=== PATIENT | female | born 1935 | race Caucasian/White ===

== ENCOUNTER 2017-01-19 22:24 | Emergency (ER) | payer MEDICARE, OTHER ==
--- NOTE | 2017-01-19 23:00 | ER Document Report ---
ED General - General Chief Complaint: Altered Mental Status Stated Complaint: ALTERED MENTAL STATUS Time Seen by Provider: 01/19/17 22:49 Information source: Relative, Emergency Med Personnel Cannot obtain history due to: Dementia Notes: Patient is an 81-year-old female with past medical history of vascular dementia who presents by EMS for not acting at her baseline per family members. No additional history can be obtained at time of arrival as patient is nonverbal and this is apparently her baseline. Only reported history is that apparently when patient was being assisted to the bathroom today she had loss of bladder, and seemed to be more confused than normal so EMS was contacted. TRAVEL OUTSIDE OF THE [place] IN LAST 30 DAYS: No - Related Data Allergies/Adverse Reactions: Sulfa (Sulfonamide Antibiotics) Allergy (Verified 09/16/10 11:49) Past Medical History - General Information source: Emergency Med Personnel Cannot obtain history due to: Dementia - Social History Smoking Status: Unknown if Ever Smoked Lives with: Family Family History: Reviewed & Not Pertinent - Past Medical History Cardiac Medical History: Reports: Hx Atrial Fibrillation - valve, Hx Heart Attack, Hx Hypertension Pulmonary Medical History: Reports: Hx Asthma Denies: Hx Tuberculosis Neurological Medical History: Reports: Hx Cerebrovascular Accident. Denies: Hx Seizures GI Medical History: Reports: Hx Hepatitis, Hx Hiatal Hernia, Hx Ulcer Psychiatric Medical History: Denies: Hx Depression Infectious Medical History: Reports: Hx Hepatitis Past Surgical History: Reports: Hx Breast Surgery, Hx Hysterectomy, Hx Open Heart Surgery, Hx Pacemaker - Immunizations Immunizations up to date: Yes Hx Diphtheria, Pertussis, Tetanus Vaccination: Yes Hx Pneumococcal Vaccination: 07/04/10 Review of Systems - Review of Systems -: Yes ROS unobtainable due to patient's medical condition Physical Exam - Vital signs Vitals: Pulse Ox 97 01/19/17 22:32 Interpretation: Normal Notes: PHYSICAL EXAMINATION: GENERAL: No acute distress, smiles during attempts at conversation HEAD: Atraumatic, normocephalic. EYES: Pupils equal round and reactive to light, extraocular movements intact, sclera anicteric, conjunctiva are normal. ENT: nares patent, oropharynx clear without exudates. Moist mucous membranes. NECK: Normal range of motion, supple without lymphadenopathy LUNGS: Breath sounds clear to auscultation bilaterally and equal. No wheezes rales or rhonchi. HEART: Irregularly irregular rhythm without murmurs ABDOMEN: Soft, nontender, normoactive bowel sounds. No guarding, no rebound. No masses appreciated. EXTREMITIES: Normal range of motion, no pitting or edema. No cyanosis. NEUROLOGICAL: No focal neurological deficits. Moves all extremities spontaneously. PSYCH: Nonverbal SKIN: Warm, Dry, normal turgor, 3 stage II decubitus ulcers are noted on the sacrum Course - Re-evaluation Re-evalutation: 01/19/17 22:59 Patient presents with apparently worse altered mental status and baseline. She is nonverbal only history is as provided by EMS who states that the daughter was concerned the patient is more altered than her baseline as she was unable to get off the toilet. Patient is very cold to the touch but vitals otherwise within normal limits. She smiles pleasantly at attempts with conversation but does not provide any history which is apparently baseline. She has no apparent facial droop. She does move all extremities spontaneously. Will proceed with a core temperature, laboratories, head CT, chest x-ray, urinalysis and reassess 01/20/17 00:29 Patient's urinalysis does demonstrate findings consistent with a urinary tract infection. The patient's daughter is now at the bedside, provides excellent history similar to what EMS reports that the patient is been weaker over the last 24-48 hours, and seemed to be acting differently today. Daughter clarifies that there was no episode of syncope or neurologic deficit earlier today. The remainder patient's laboratories, CT the head, chest x-ray are all unremarkable. Daughter is agreeable to managing the patient as an outpatient on oral cephalexin. A urine culture has been sent. At this time will discharge with return precautions and follow-up recommendations. Verbal discharge instructions given a the bedside and opportunity for questions given. Medication warnings reviewed. Daughter is in agreement with this plan and has verbalized understanding of return precautions and the need for primary care follow-up in the next 24-72 hours. - Vital Signs Vital signs: Temp Pulse Resp BP Pulse Ox 99 17 108/94 H 99 01/19/17 22:37 01/20/17 01:14 01/20/17 01:14 01/20/17 01:14 - Laboratory Result Diagrams: 01/19/17 23:10 01/19/17 23:10 Laboratory results interpreted by me: 01/19/17 01/19/17 01/19/17 23:10 23:10 23:25 MCV 100 H RDW 14.6 H Lymphocytes % 11.8 L BUN 30 H Glucose 157 H Urine Protein 100 H Urine Ketones TRACE H Urine Urobilinogen 4.0 H Ur Leukocyte Esterase SMALL H Urine Ascorbic Acid 40 H - Diagnostic Test Radiology reviewed: Image reviewed, Reports reviewed Radiology results interpreted by me: 01/20/17 01:57 CT head: No acute intracranial bleed CXR: No acute infiltrate - EKG Interpretation by Me Additional EKG results interpreted by me: 01/20/17 01:[address] elevations or depressions. 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 Prolonged QTC at 590 Discharge - Discharge Clinical Impression: Altered mental status Qualifiers: Altered mental status type: unspecified Qualified Code(s): R41.82 - Altered mental status, unspecified Urinary tract infection Qualifiers: Urinary tract infection type: site unspecified Hematuria presence: without hematuria Qualified Code(s): N39.0 - Urinary tract infection, site not specified Condition: Stable Disposition: HOME, SELF-CARE Additional Instructions: Your urine shows findings consistent with a urinary tract infection. Please take all the antibiotics as directed even if your symptoms have improved. Please follow-up with your primary care physician as needed. Return to emergency room if you develop fever >101F, persistent vomiting, become lethargic , have severe pain in your sides, or any other symptoms that are concerning to you. Prescriptions: Cephalexin Monohydrate [Keflex 500 mg Capsule] 500 mg PO QID #20 capsule Referrals: PINO DUFFY MD [Primary Care Provider] - Follow up as needed
[2017-01-19 23:27] LABS: ABSOLUTE LYMPHOCYTES (AUTO) 1.2 10^3/uL (0.5-4.7); ABSOLUTE MONOCYTES (AUTO) 0.9 10^3/uL (0.1-1.4); ABSOLUTE NEUT (AUTO) 7.7 10^3/uL (1.7-8.2); BASOPHILS % (AUTO) 0.4 % (0-2); EOSINOPHILS % (AUTO) 0.5 % (0-6); HEMATOCRIT 40.2 % (36.0-47.0); HEMOGLOBIN 13.2 g/dL (12.0-15.5); HGB HCT DIFFERENCE -0.6; LYMPHOCYTES % (AUTO) 11.8 % (13-45); MEAN CORPUSCULAR HGB CONC 32.9 g/dL (32.0-36.0); MEAN CORPUSCULAR VOLUME 100 fl (80-97); MONOCYTES % (AUTO) 9.6 % (3-13); RED BLOOD COUNT 4.01 10^6/uL (3.72-5.28); RED CELL DISTRIBUTION WIDTH 14.6 % (11.5-14.0); SEGMENTED NEUTROPHILS % (AUTO) 77.7 % (42-78); WHITE BLOOD COUNT 9.9 10^3/uL (4.0-10.5)
[2017-01-19 23:39] LABS: ANION GAP 11 (5-19); BLOOD UREA NITROGEN 30 mg/dL (7-20); CALCIUM 8.8 mg/dL (8.4-10.2); CARBON DIOXIDE 23 mmol/L (22-30); CHLORIDE 104 mmol/L (98-107); CREATININE RESULT 0.88 mg/dL (0.52-1.25); GLUCOSE 157 mg/dL (75-110); POTASSIUM 4.2 mmol/L (3.6-5.0); SODIUM 138.4 mmol/L (137-145)
--- NOTE | 2017-01-19 23:54 | RADIOLOGY REPORT (SQ) ---
EXAM DESCRIPTION: CT HEAD WITHOUT COMPLETED DATE/TIME: 01/19/2017 11:40 pm REASON FOR STUDY: ams COMPARISON: 09/30/2012 TECHNIQUE: Axial images acquired through the brain without intravenous contrast. Images reviewed wi th bone, brain and subdural windows. Images stored on PACS. All CT scanners at this facility use dose modulation, iterative reconstruction, and/or weight based d osing when appropriate to reduce radiation dose to as low as reasonably achievable (ALARA). [facility]: Dose Right [facility]: CareDose [facility]: Dose Right [facility]: Teradose 4D [facility]: [employer] RADIATION DOSE: Up-to-date CT equipment and radiation dose reduction techniques were employed. CTDIv ol: 55.3 mGy. DLP: 996 mGy-cm.mGy. LIMITATIONS: None. FINDINGS: VENTRICLES: Prominent. CEREBRUM: No masses. No hemorrhage. No midline shift. Areas of low density in the white matter mos t likely due to chronic micro-vascular ischemic change. No evidence for acute infarction. Basal barbi glia calcifications. CEREBELLUM: No masses. No hemorrhage. No alteration of density. No evidence for acute infarction. EXTRAAXIAL SPACES: Age-related involutional change. No fluid collections. No masses. ORBITS AND GLOBE: No intra- or extraconal masses. Normal contour of globe without masses. CALVARIUM: No fracture. PARANASAL SINUSES: No fluid or mucosal thickening. SOFT TISSUES: No mass or hematoma. OTHER: No other significant finding. IMPRESSION: CHRONIC CHANGES OF ATROPHY AND MICROVASCULAR ISCHEMIA. NO ACUTE PROCESS. TECHNICAL DOCUMENTATION: JOB ID: [id number] Quality ID # [id number]: Final reports with documentation of one or more dose reduction techniques (e.g., Au tomated exposure control, adjustment of the mA and/or kV according to patient size, use of iterative reconstruction technique) 2010 [employer]- All Rights Reserved
--- NOTE | 2017-01-19 23:56 | RADIOLOGY REPORT (SQ) ---
EXAM DESCRIPTION: CHEST SINGLE VIEW COMPLETED DATE/TIME: 01/19/2017 11:42 pm REASON FOR STUDY: cough, ams COMPARISON: 01/12/2014 EXAM PARAMETERS: NUMBER OF VIEWS: One view. TECHNIQUE: Single frontal radiographic view of the chest acquired. RADIATION DOSE: NA LIMITATIONS: None. FINDINGS: LUNGS AND PLEURA: Bibasilar atelectasis. No focal infiltrate. No pneumothorax. No signi ficant effusion. MEDIASTINUM AND HILAR STRUCTURES: No masses. Contour normal. HEART AND VASCULAR STRUCTURES: Cardiac size is stable. No vascular distention. BONES: No acute findings. HARDWARE: EKG leads overlie the chest. OTHER: No other significant finding. IMPRESSION: Bibasilar atelectasis. No focal infiltrate. TECHNICAL DOCUMENTATION: JOB ID: [id number]
[2017-01-20 00:03] LABS: APPEARANCE,URINE CLOUDY; BILIRUBIN,URINE NEGATIVE (NEGATIVE); GLUCOSE, URINE NEGATIVE (NEGATIVE); KETONES,URINE TRACE mg/dL (NEGATIVE); LEUKOCYTE ESTERASE,URINE SMALL (NEGATIVE); NITRITE,URINE NEGATIVE (NEGATIVE); PROTEIN,URINE 100 mg/dL (NEGATIVE); URINE SPECIFIC GRAVITY 1.025
[2017-01-20] MEDS ORDERED: CEFTRIAXONE 1 GM/D5W RTU 50 ML IV ONE (00:19)
[2017-01-20 01:37] VITALS: BP 108/94
--- NOTE | 2017-01-21 06:03 | EKG REPORT ---
SEVERITY:- ABNORMAL ECG - SINUS OR ECTOPIC ATRIAL RHYTHM FIRST DEGREE AV BLOCK RBBB AND LPFB : Confirmed by: Marlene Sanchez MD 21-Jan-2017 06:03:20
== END 2017-01-20 01:37 | disposition home or self-care (01) ==
LOC: ER 22:24
DX: R41.82 Altered mental status, unspecified (principal); N39.0 Urinary tract infection, site not specified; F01.50 Vascular dementia, unspecified severity, without behavioral disturbance, psychotic disturbance, mood disturbance, and anxiety; Z88.2 Allergy status to sulfonamides; I48.91 Unspecified atrial fibrillation; I25.2 Old myocardial infarction; I10 Essential (primary) hypertension; Z86.73 Personal history of transient ischemic attack (TIA), and cerebral infarction without residual deficits; Z90.710 Acquired absence of both cervix and uterus
CPT/HCPCS: 93005; 99285; 96365; 36415; 87086; 85025; 87088; 80048; 81001; 84484; 87186; 71010; 70450; 93010; J0696

== ENCOUNTER 2017-01-20 21:39 | Inpatient (IN) | payer MEDICARE, OTHER ==
[2017-01-20] MEDS ORDERED: CEFEPIME 2 GM/D5W RTU 50 ML IV ONE (21:46)
[2017-01-20] MEDS ORDERED: NORMAL SALINE 1000 ML 1,000 ML IV ONE ×2 (21:46→22:52)
--- NOTE | 2017-01-20 22:04 | ER Document Report ---
ED General - General Chief Complaint: Low Blood Pressure Stated Complaint: POSSIBLE SYNCOPE Time Seen by Provider: 01/20/17 21:46 Information source: Emergency Med Personnel Cannot obtain history due to: Dementia Notes: Patient is an 81-year-old female whom I saw yesterday for a period of altered mental status, found to have pyelonephritis on urinalysis and discharged home on cephalexin who presents today after an episode of syncope while on the commode. Again history is severely limited secondary to patient's severe dementia with nonverbal status. Daughter reports that she has been providing Keflex as prescribed. EMS reports initial core temperature for the patient was 96F. She was initially noted to have a non-obtainable blood pressure while sitting on the toilet when EMS got her onto the stretcher and laid her flat her blood pressure did normalize and patient became closer to her baseline mental status. She was then transported to the emergency department. TRAVEL OUTSIDE OF THE [place] IN LAST 30 DAYS: No - Related Data Allergies/Adverse Reactions: Sulfa (Sulfonamide Antibiotics) Allergy (Verified 09/16/10 11:49) Home Medications: Current Home Medications Amiodarone HCl [Cordarone 200 mg Tablet] 200 mg PO DAILY 01/20/17 [History] Donepezil HCl 10 mg PO HSP PRN 01/20/17 [History] Memantine HCl [Namenda Xr] 28 mg PO DAILY 01/20/17 [History] Potassium Chloride 20 meq PO BID 01/20/17 [History] Past Medical History - General Information source: Emergency Med Personnel Cannot obtain history due to: Dementia - Social History Smoking Status: Unknown if Ever Smoked Lives with: Family Family History: Reviewed & Not Pertinent - Past Medical History Cardiac Medical History: Reports: Hx Atrial Fibrillation - valve, Hx Heart Attack, Hx Hypertension Pulmonary Medical History: Reports: Hx Asthma Denies: Hx Tuberculosis Neurological Medical History: Reports: Hx Cerebrovascular Accident. Denies: Hx Seizures GI Medical History: Reports: Hx Hepatitis, Hx Hiatal Hernia, Hx Ulcer Psychiatric Medical History: Denies: Hx Depression Infectious Medical History: Reports: Hx Hepatitis Past Surgical History: Reports: Hx Breast Surgery, Hx Hysterectomy, Hx Open Heart Surgery, Hx Pacemaker - Immunizations Immunizations up to date: Yes Hx Diphtheria, Pertussis, Tetanus Vaccination: Yes Hx Pneumococcal Vaccination: 07/04/10 Review of Systems - Review of Systems -: Yes ROS unobtainable due to patient's medical condition Physical Exam - Vital signs Vitals: BP 108/73 01/20/17 15:33 Interpretation: Tachycardic Notes: PHYSICAL EXAMINATION: GENERAL: Elderly woman, lying in bed no acute distress but is ill in appearance relative to yesterday. HEAD: Atraumatic, normocephalic. EYES: Pupils equal round and reactive to light, extraocular movements intact, sclera anicteric, conjunctiva are normal. ENT: nares patent, oropharynx clear without exudates. Moderately dry mucous membranes. NECK: Normal range of motion, supple without lymphadenopathy LUNGS: Breath sounds clear to auscultation bilaterally and equal. No wheezes rales or rhonchi. HEART: regular tachycardia without murmurs ABDOMEN: Soft, nontender, normoactive bowel sounds. No guarding, no rebound. No masses appreciated. EXTREMITIES: no pitting or edema. No cyanosis. NEUROLOGICAL: No focal neurological deficits. Moves all extremities spontaneously PSYCH: Nonverbal SKIN: Warm, Dry, normal turgor, no rashes or lesions noted. Course - Re-evaluation Re-evalutation: 01/20/17 22:02 Patient presents with an episode of what appears to be a vasovagal syncope while trying to have a bowel movement in the setting of sepsis. Inital core temp is 96 with tachycarida (although heart rate has normalized upon arrival) She was just seen by me yesterday at that time for an altered mental status episode and found to have a urinary tract infection, given a dose of IV ceftriaxone and sent home on cephalexin. Physical examination today is unchanged from yesterday, patient's mental status is again at her baseline. Will obtain basic laboratories, provide IV fluids and reassess. Yesterday family had wanted patient to be followed at home for these concerns and will discuss with them again today about ongoing management as an outpatient versus consideration of admission. 01/20/17 22:57 Patient's lactate is noted to be markedly elevated at 5.5. This does meet criteria for severe sepsis. Patient has already received 1 L of IV fluids and is now receiving a second. Cefepime has been administered and will add on vancomycin given his elevated lactate. Again I suspect the source is urinary given urinalysis yesterday demonstrating findings consistent with an acute urinary tract infection. Chest x-ray is again negative today and patient has no evidence of infection on her decubitus ulcers. I discussed this with the patient's primary care doctor Dr. Oliver would like her admitted to the telemetry unit. 01/20/17 23:04 I have updated the patient's daughter at the bedside who is in agreement with admission at this time. Will continue to monitor closely given this elevated lactate and plan for a recheck. Will continue to monitor closely while here in the ED. 01/20/17 23:46 Patient is remained hemodynamically within normal limits, remains at her baseline mental status. Continues to receive IV fluids at this time - Vital Signs Vital signs: Temp Pulse Resp BP Pulse Ox 97 F L 95 16 121/66 96 01/20/17 22:08 01/21/17 02:00 01/21/17 00:54 01/21/17 00:54 01/21/17 00:54 - Laboratory Result Diagrams: 01/20/17 21:55 01/20/17 21:55 Laboratory results interpreted by me: 01/20/17 01/20/17 01/20/17 21:55 21:55 21:55 MCV 102 H RDW 14.8 H Band Neutrophils % 2 L Metamyelocytes % 1 H VBG pH Carbon Dioxide 21 L BUN 33 H Est GFR (Non-Af Amer) 52 L Glucose 171 H Lactic Acid 5.2 H AST 247 H ALT 117 H Alkaline Phosphatase 146 H Albumin 3.3 L 01/20/17 21:55 MCV RDW Band Neutrophils % Metamyelocytes % VBG pH 7.22 L Carbon Dioxide BUN Est GFR (Non-Af Amer) Glucose Lactic Acid AST ALT Alkaline Phosphatase Albumin - Diagnostic Test Radiology reviewed: Image reviewed, Reports reviewed Radiology results interpreted by me: 01/20/17 22:58 Chest x-ray: No acute infiltrate or pneumothorax - EKG Interpretation by Me Additional EKG results interpreted by me: 01/20/17 22:58 A. fib, rate 96. Right bundle branch block and left posterior fascicular block , unchanged from prior. QTc 444. Critical Care Note - Critical Care Note Total time excluding time spent on procedures (mins): 38 Comments: Critical care time spent obtaining history from patient or surrogate, discussions with consultants, development of treatment plan with patient or surrogate, evaluation of patient's response to treatment, examination of patient , ordering and performing treatments and interventions, ordering and review of laboratory studies, re-evaluation of patient's condition, ordering and review of radiographic studies and review of old charts Discharge - Discharge Clinical Impression: Severe sepsis, Pyelonephritis Condition: Fair Disposition: ADMITTED INPATIENT Admitting Provider: Melody Unit Admitted: Telemetry
[2017-01-20 22:11] LABS: VENOUS BLOOD BASE EXCESS -6.3 mmol/L; VENOUS BLOOD HCO3 21.8 mmol/L (20-32); VENOUS BLOOD PCO2 54.1 mmHg (35-63); VENOUS BLOOD PH 7.22 (7.30-7.42)
[2017-01-20 22:14] LABS: HEMATOCRIT 38.3 % (36.0-47.0); HEMOGLOBIN 12.5 g/dL (12.0-15.5); HGB HCT DIFFERENCE -0.8; MEAN CORPUSCULAR HEMOGLOBIN 33.4 pg (27.0-33.4); MEAN CORPUSCULAR HGB CONC 32.7 g/dL (32.0-36.0); MEAN CORPUSCULAR VOLUME 102 fl (80-97); RED BLOOD COUNT 3.75 10^6/uL (3.72-5.28); RED CELL DISTRIBUTION WIDTH 14.8 % (11.5-14.0)
--- NOTE | 2017-01-20 22:25 | RADIOLOGY REPORT (SQ) ---
EXAM DESCRIPTION: CHEST SINGLE VIEW COMPLETED DATE/TIME: 01/20/2017 10:13 pm REASON FOR STUDY: possible sepsis COMPARISON: 01/19/2017 EXAM PARAMETERS: NUMBER OF VIEWS: One view. TECHNIQUE: Single frontal radiographic view of the chest acquired. RADIATION DOSE: NA LIMITATIONS: None. FINDINGS: LUNGS AND PLEURA: Bibasilar atelectasis. No focal infiltrate. MEDIASTINUM AND HILAR STRUCTURES: No masses. Contour normal. HEART AND VASCULAR STRUCTURES: Heart normal in size. Normal vasculature. BONES: No acute findings. HARDWARE: Annular prosthesis noted. EKG leads overlie the chest. OTHER: No other significant finding. IMPRESSION: Bibasilar atelectasis. No focal infiltrates identified. TECHNICAL DOCUMENTATION: JOB ID: [id number]
[2017-01-20 22:26] LABS: ALANINE AMINOTRANSFERASE 117 U/L (9-52); ALBUMIN 3.3 g/dL (3.5-5.0); ALKALINE PHOSPHATASE 146 U/L (38-126); ANION GAP 14 (5-19); ASPARTATE AMINO TRANSFERASE 247 U/L (14-36); BILIRUBIN,DIRECT 0.4 mg/dL (0.0-0.4); BILIRUBIN,TOTAL 0.7 mg/dL (0.2-1.3); BLOOD UREA NITROGEN 33 mg/dL (7-20); CALCIUM 8.7 mg/dL (8.4-10.2); CARBON DIOXIDE 21 mmol/L (22-30); CHLORIDE 105 mmol/L (98-107); CREATININE RESULT 1.03 mg/dL (0.52-1.25); GLUCOSE 171 mg/dL (75-110); POTASSIUM 4.4 mmol/L (3.6-5.0); SODIUM 140.2 mmol/L (137-145); TOTAL PROTEIN 6.5 g/dL (6.3-8.2)
[2017-01-20 22:31] LABS: BAND NEUTROPHILS % (MANUAL) 2 % (3-5); BASOPHILS % (MANUAL) 1 % (0-2); EOSINOPHILS % (MANUAL) 1 % (0-6); LYMPHOCYTES % (MANUAL) 20 % (13-45); TOTAL CELLS COUNTED 100
[2017-01-20 22:32] LABS: ANISOCYTOSIS SLIGHT; TOXIC GRANULATION SLIGHT; TOXIC VACUOLATION PRESENT
[2017-01-20 22:34] LABS: OVALOCYTES SLIGHT; PLATELET CLUMPS PRESENT; POIKILOCYTOSIS SLIGHT
[2017-01-20] MEDS ORDERED: VANCOMYCIN HCL INJ 1000 MG VIAL IV ONE (22:52)
[2017-01-21] MEDS ORDERED: NORMAL SALINE 1000 ML 1,000 ML IV PRN (05:15)
[2017-01-21] MEDS ORDERED: VANCOMYCIN HCL 0 MG in DEXTROSE 5%-WATER 250 ML IV NR (05:30)
[2017-01-21 06:03] LABS: PROTHROMBIN TIME 32.2 SEC (11.4-15.4)
--- NOTE | 2017-01-21 06:03 | EKG REPORT ---
SEVERITY:- ABNORMAL ECG - SINUS OR ECTOPIC ATRIAL RHYTHM FIRST DEGREE AV BLOCK RBBB AND LPFB : Confirmed by: Marlene Sanchez MD 21-Jan-2017 06:03:09
[2017-01-21] MEDS ORDERED: DONEPEZIL HCL 5 MG TABLET PO PRN (06:15)
--- NOTE | 2017-01-21 08:41 | PDOC H&P ---
History of Present Illness Admission Date/PCP: 01/21/17 05:15 Patient complains of: syncope on toilet last 2 evenings History of Present Illness: ALLEN ARANGO is a 81 year old female who passed out on commode 2d ago and again last pm. 1st time ER gave ceftri & keflex for uti. Past Medical History Cardiac Medical History: Reports: Atrial Fibrillation - Has 3cardiologists. Dr Villa here runs warfarin. 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 Denies: Seizures Endocrine Medical History: Reports: None Renal/ Medical History: Reports: None Malignancy Medical History: Reports: None GI Medical History: Reports: Hepatitis, Hiatal Hernia Musculoskeltal Medical History: Reports: Arthritis Skin Medical History: Reports: Other - decubiti L heel sacrum Psychiatric Medical History: Reports: Dementia Traumatic Medical History: Reports: None Hematology: Reports: None Infectious Medical History: Reports: None Past Surgical History Past Surgical History: Reports: Cholecystectomy, Hysterectomy, Pacemaker, Valve Replacement - 2012 mitral Social History Information Source: Dr. Fletcher Lives with: Family Smoking Status: Former Smoker Number of Years Smokin Last Time Smoked: 1988 Frequency of Alcohol Use: None Hx Recreational Drug Use: No Drugs: None Hx Prescription Drug Abuse: No - Advance Directive Resuscitation Status: Do Not Resuscitate Family History Family History: CVA, DM, Hypertension, Malignancy Parental Family History Reviewed: Yes Children Family History Reviewed: Yes Sibling(s) Family History Reviewed.: Yes Medication/Allergy Home Medications: Lisinopril 20 mg PO DAILY 01/12/14 Warfarin Sodium 3 mg PO QHS 01/12/14 Amiodarone HCl [Cordarone 200 mg Tablet] 200 mg PO DAILY 01/20/17 Cephalexin Monohydrate [Keflex 500 mg Capsule] 500 mg PO QID #20 capsule Donepezil HCl 10 mg PO HSP PRN 01/20/17 Memantine HCl [Namenda Xr] 28 mg PO DAILY 01/20/17 Potassium Chloride 20 meq PO BID 01/20/17 Allergies/Adverse Reactions: Sulfa (Sulfonamide Antibiotics) Allergy (Verified 09/16/10 11:49) Review of Systems ROS unobtainable: Due to mental status Constitutional: ABSENT: fever(s), weight loss Nose, Mouth, and Throat: ABSENT: sore throat Cardiovascular: ABSENT: chest pain, dyspnea on exertion, orthropnea Respiratory: ABSENT: cough Gastrointestinal: PRESENT: vomiting - once each syncope. ABSENT: abdominal pain , constipation, diarrhea, hematochezia, melena Genitourinary: PRESENT: dysuria Musculoskeletal: ABSENT: back pain Integumentary: PRESENT: wounds - sacral decub poa Neurological: PRESENT: memory loss Physical Exam Vital Signs: Temp Pulse Resp BP Pulse Ox 97.4 F 98 14 101/66 100 01/21/17 05:07 01/21/17 05:07 01/21/17 05:07 01/21/17 05:07 01/21/17 05:07 Intake & Output 01/19/17 01/20/17 01/21/17 07:59 07:59 07:59 Weight 175 lb 0.752 oz General appearance: PRESENT: no acute distress Mouth exam: PRESENT: moist Neck exam: ABSENT: lymphadenopathy, tenderness, thyromegaly, tracheal deviation Respiratory exam: PRESENT: clear to auscultation po Cardiovascular exam: PRESENT: +S1 - metallic. ABSENT: diastolic murmur, irregular rhythm, systolic murmur GI/Abdominal exam: ABSENT: mass, organolmegaly, tenderness Extremities exam: PRESENT: pedal edema - trace Neurological exam: ABSENT: oriented to situation Psychiatric exam: PRESENT: appropriate affect Results Laboratory Results: Abnormal - 24 hr 01/20/17 01/20/17 01/20/17 21:55 21:55 21:55 MCV 102 H RDW 14.8 H Band Neutrophils % 2 L Metamyelocytes % 1 H PT VBG pH Carbon Dioxide 21 L BUN 33 H Est GFR (Non-Af Amer) 52 L Glucose 171 H Lactic Acid 5.2 H AST 247 H ALT 117 H Alkaline Phosphatase 146 H Albumin 3.3 L 01/20/17 01/21/17 01/21/17 21:55 02:17 05:47 MCV RDW Band Neutrophils % Metamyelocytes % PT 32.2 H VBG pH 7.22 L Carbon Dioxide BUN Est GFR (Non-Af Amer) Glucose Lactic Acid 5.0 H AST ALT Alkaline Phosphatase Albumin Impressions: Chest X-Ray 01/20/17 21:47 IMPRESSION: Bibasilar atelectasis. No focal infiltrates identified. Assessment & Plan - Diagnosis (1) Pyelonephritis Is this a current diagnosis for this admission?: YesPlan: cefepime vanc (2) Severe sepsis Is this a current diagnosis for this admission?: YesPlan: from uti. Lactate improving. Continue saline (3) Afib Qualifiers: Atrial fibrillation type: chronic Qualified Code(s): I48.2 - Chronic atrial fibrillation Is this a current diagnosis for this admission?: YesPlan: continue amiodarone & warfarin - Inpatient Certification Based on my medical assessment, after consideration of the patient's comorbidities, presenting symptoms, or acuity I expect that the services needed warrant INPATIENT care.: Yes I certify that my determination is in accordance with my understanding of Medicare's requirements for reasonable and necessary INPATIENT services [42 CFR 412.3e].: Yes Medical Necessity: Failure to Improve With Outpatient Therapy, Significant Comorbidiites Make Outpatient Treatment Too Risky, Need Close Monitoring Due to Risk of Patient Decompensation, Need For IV Fluids, Need For Continuous Telemetry Monitoring, Need for IV Antibiotics, Risk of Complication if Not Cared For in Hospital, Risk of Diagnosis Which Will Require Inpatient Eval/Care/ Monitoring
[2017-01-21] MEDS: FAMOTIDINE INJ/PF 20 MG/2 ML SDV IV SCH ×2 (09:53→22:07)
[2017-01-21] MEDS: AMIODARONE HCL 200 MG TABLET PO SCH (09:53)
[2017-01-21] MEDS ORDERED: (PENDING PHARMACY ID) (Memantine Hcl [Namenda Xr] 28 MG) PO SCH (10:00)
[2017-01-21] MEDS ORDERED: WARFARIN SODIUM 3 MG TABLET PO SCH (10:00)
[2017-01-21] MEDS ORDERED: LIDOCAINE 2% INJ-PF (100 MG/5 ML) SYRINGE ONE (10:47)
[2017-01-21] MEDS: NORMAL SALINE 1000 ML 1,000 ML IV PRN (18:16)
[2017-01-21] MEDS: CEFEPIME 2 GM/D5W RTU 2 GM/50 ML RTUPB IV SCH (22:08)
[2017-01-21] MEDS: VANCOMYCIN HCL 1,250 MG in DEXTROSE 5%-WATER 250 ML IV SCH (22:08)
[2017-01-21] MEDS: ASPIRIN 81 MG TABLET, CHEWABLE PO SCH (22:09)
[2017-01-22] MEDS: NORMAL SALINE 1000 ML 1,000 ML IV PRN (04:52)
[2017-01-22 05:49] LABS: ANION GAP 6 (5-19); BLOOD UREA NITROGEN 20 mg/dL (7-20); CALCIUM 7.6 mg/dL (8.4-10.2); CARBON DIOXIDE 21 mmol/L (22-30); CHLORIDE 110 mmol/L (98-107); CREATININE RESULT 0.65 mg/dL (0.52-1.25); GLUCOSE 91 mg/dL (75-110); POTASSIUM 3.9 mmol/L (3.6-5.0); SODIUM 136.8 mmol/L (137-145)
--- NOTE | 2017-01-22 06:26 | PDOC PROGRESS REPORT ---
Subjective Progress Note for:: 01/22/17 Subjective:: no symptoms Physical Exam Vital Signs: Temp Pulse Resp BP Pulse Ox 97.4 F 98 16 127/66 H 96 01/22/17 04:06 01/22/17 04:06 01/22/17 04:06 01/22/17 04:06 01/22/17 04:06 Intake & Output 01/20/17 01/21/17 01/22/17 07:59 07:59 07:59 Intake Total 480 Balance 480 Weight 175 lb 0.752 oz General appearance: PRESENT: no acute distress Respiratory exam: PRESENT: clear to auscultation po Cardiovascular exam: PRESENT: irregular rhythm, systolic murmur. ABSENT: diastolic murmur Murmur grade: 1 GI/Abdominal exam: ABSENT: mass, organolmegaly, tenderness Extremities exam: ABSENT: pedal edema Neurological exam: ABSENT: oriented to situation Psychiatric exam: PRESENT: appropriate affect Results Laboratory Results: 01/22/17 04:44 Abnormal - 24 hr 01/22/17 04:44 Sodium 136.8 L Chloride 110 H Carbon Dioxide 21 L Calcium 7.6 L Impressions: Chest X-Ray 01/20/17 21:47 IMPRESSION: Bibasilar atelectasis. No focal infiltrates identified. Assessment & Plan - Diagnosis (1) Pyelonephritis Is this a current diagnosis for this admission?: YesPlan: urine growing gram negative. Blood growing gram positive. Continue cefepime & vanc (2) Severe sepsis Is this a current diagnosis for this admission?: Yes (3) Afib Qualifiers: Atrial fibrillation type: chronic Qualified Code(s): I48.2 - Chronic atrial fibrillation Is this a current diagnosis for this admission?: YesPlan: Daughter said abhi wanted her on aspirin too in spite of risk. Daily inr. - Inpatient Certification Medical Necessity: Need Close Monitoring Due to Risk of Patient Decompensation, Need for IV Antibiotics, Risk of Complication if Not Cared For in Hospital
[2017-01-22] MEDS: AMIODARONE HCL 200 MG TABLET PO SCH (09:26)
[2017-01-22] MEDS: WARFARIN SODIUM 3 MG TABLET PO SCH (09:27)
[2017-01-22] MEDS: FAMOTIDINE INJ/PF 20 MG/2 ML SDV IV SCH ×2 (09:28→21:48)
[2017-01-22 18:05] LABS: PROTHROMBIN TIME 28.6 SEC (11.4-15.4)
[2017-01-22] MEDS: ASPIRIN 81 MG TABLET, CHEWABLE PO SCH (21:48)
[2017-01-22] MEDS: CEFEPIME 2 GM/D5W RTU 2 GM/50 ML RTUPB IV SCH (21:48)
[2017-01-22] MEDS: VANCOMYCIN HCL 1,250 MG in DEXTROSE 5%-WATER 250 ML IV SCH (21:48)
[2017-01-23 06:24] LABS: ANION GAP 5 (5-19); BLOOD UREA NITROGEN 15 mg/dL (7-20); CALCIUM 8.1 mg/dL (8.4-10.2); CARBON DIOXIDE 25 mmol/L (22-30); CHLORIDE 109 mmol/L (98-107); GLUCOSE 85 mg/dL (75-110); POTASSIUM 3.5 mmol/L (3.6-5.0); SODIUM 138.9 mmol/L (137-145)
--- NOTE | 2017-01-23 07:29 | PDOC PROGRESS REPORT ---
Subjective Progress Note for:: 01/23/17 Subjective:: OK Physical Exam Vital Signs: Temp Pulse Resp BP Pulse Ox 98.6 F 99 16 128/65 H 94 01/23/17 03:23 01/23/17 03:23 01/23/17 03:23 01/23/17 03:23 01/23/17 03:23 Intake & Output 01/21/17 01/22/17 01/23/17 07:59 07:59 07:59 Intake Total 480 1914 Balance 480 1914 Weight 175 lb 0.752 oz 175 lb 0.752 oz 174 lb 9.698 oz General appearance: PRESENT: no acute distress Respiratory exam: PRESENT: clear to auscultation po Cardiovascular exam: PRESENT: irregular rhythm, systolic murmur. ABSENT: diastolic murmur Murmur grade: 1 GI/Abdominal exam: ABSENT: mass, organolmegaly, tenderness Extremities exam: PRESENT: pedal edema - 1+ diffuse Neurological exam: ABSENT: oriented to situation Psychiatric exam: PRESENT: appropriate affect Results Laboratory Results: 01/23/17 04:43 01/23/17 04:43 Sodium 138.9 Potassium 3.5 L Chloride 109 H Carbon Dioxide 25 Anion Gap 5 BUN 15 Creatinine 0.60 Est GFR ( Amer) > 60 Est GFR (Non-Af Amer) > 60 Glucose 85 Calcium 8.1 L Impressions: Chest X-Ray 01/20/17 21:47 IMPRESSION: Bibasilar atelectasis. No focal infiltrates identified. Assessment & Plan - Diagnosis (1) Pyelonephritis Is this a current diagnosis for this admission?: YesPlan: urine growing gram positive still not identified. Continue vanc & cefepime (2) Severe sepsis Is this a current diagnosis for this admission?: YesPlan: enough fluids. Stop iv. (3) Afib Qualifiers: Atrial fibrillation type: chronic Qualified Code(s): I48.2 - Chronic atrial fibrillation Is this a current diagnosis for this admission?: YesPlan: inr2.5. Down on antibiotics. - Inpatient Certification Medical Necessity: Significant Comorbidiites Make Outpatient Treatment Too Risky , Need for IV Antibiotics, Risk of Complication if Not Cared For in Hospital
[2017-01-23] MEDS: AMIODARONE HCL 200 MG TABLET PO SCH (10:05)
[2017-01-23] MEDS: POTASSIUM CHLORIDE 20 MEQ/15 ML UDCUP PO SCH (10:05)
[2017-01-23] MEDS: FAMOTIDINE INJ/PF 20 MG/2 ML SDV IV SCH ×2 (10:06→21:19)
[2017-01-23] MEDS: WARFARIN SODIUM 3 MG TABLET PO SCH (10:06)
[2017-01-23 18:33] LABS: PROTHROMBIN TIME 22.2 SEC (11.4-15.4)
[2017-01-23] MEDS: CEFTRIAXONE 1 GM/D5W RTU 1 GM/50 ML RTUPB IV SCH (18:36)
[2017-01-23] MEDS: ASPIRIN 81 MG TABLET, CHEWABLE PO SCH (21:19)
[2017-01-23 21:50] LABS: CREATININE RESULT 0.67 mg/dL (0.52-1.25)
[2017-01-23] MEDS: VANCOMYCIN HCL 1,250 MG in DEXTROSE 5%-WATER 250 ML IV SCH (22:19)
[2017-01-24 05:27] LABS: ANION GAP 7 (5-19); BLOOD UREA NITROGEN 21 mg/dL (7-20); CALCIUM 8.1 mg/dL (8.4-10.2); CARBON DIOXIDE 25 mmol/L (22-30); CHLORIDE 107 mmol/L (98-107); CREATININE RESULT 0.61 mg/dL (0.52-1.25); GLUCOSE 93 mg/dL (75-110); POTASSIUM 3.5 mmol/L (3.6-5.0)
--- NOTE | 2017-01-24 08:06 | PDOC PROGRESS REPORT ---
Subjective Progress Note for:: 01/24/17 Subjective:: no symptoms. Will be in [place] 2 more weeks. Physical Exam Vital Signs: Temp Pulse Resp BP Pulse Ox 98.5 F 100 18 147/80 H 100 01/24/17 04:00 01/24/17 04:00 01/24/17 04:00 01/24/17 04:00 01/24/17 04:00 Intake & Output 01/23/17 01/24/17 01/25/17 07:59 07:59 07:59 Intake Total 1914 1170 Balance 1914 1170 Weight 174 lb 9.698 oz 181 lb 14.102 oz General appearance: PRESENT: no acute distress Respiratory exam: PRESENT: clear to auscultation po Cardiovascular exam: PRESENT: irregular rhythm, systolic murmur. ABSENT: diastolic murmur Murmur grade: 1 GI/Abdominal exam: ABSENT: mass, organolmegaly, tenderness Extremities exam: ABSENT: pedal edema Neurological exam: ABSENT: oriented to situation Psychiatric exam: PRESENT: appropriate affect Results Laboratory Results: 01/24/17 04:15 Abnormal - 24 hr 01/23/17 01/24/17 18:02 04:15 PT 22.2 H Potassium 3.5 L BUN 21 H Calcium 8.1 L Impressions: Chest X-Ray 01/20/17 21:47 IMPRESSION: Bibasilar atelectasis. No focal infiltrates identified. Assessment & Plan - Diagnosis (1) Pyelonephritis Is this a current diagnosis for this admission?: YesPlan: 100k Ecoli sensitive x quinolones. Now on ceftri. 1of2 blood cultures staph hominis. Suspect contaminant. Stopped vanc. Home tomorrow on amoxicillin (2) Severe sepsis Is this a current diagnosis for this admission?: Yes (3) Afib Qualifiers: Atrial fibrillation type: chronic Qualified Code(s): I48.2 - Chronic atrial fibrillation Is this a current diagnosis for this admission?: YesPlan: inr1.8. Increase coumadin to 3mg MWF and half rest
[2017-01-24] MEDS ORDERED: WARFARIN SODIUM 3 MG TABLET PO SCH (10:00)
[2017-01-24] MEDS: POTASSIUM CHLORIDE 20 MEQ/15 ML UDCUP PO SCH (10:25)
[2017-01-24] MEDS: FAMOTIDINE INJ/PF 20 MG/2 ML SDV IV SCH (10:26)
[2017-01-24] MEDS: AMIODARONE HCL 200 MG TABLET PO SCH (10:26)
[2017-01-24 16:38] LABS: HEPATITIS C VIRUS AB <0.1 s/co ratio (0.0-0.9)
[2017-01-24] MEDS: CEFTRIAXONE 1 GM/D5W RTU 1 GM/50 ML RTUPB IV SCH (17:58)
[2017-01-24 19:01] LABS: PROTHROMBIN TIME 18.9 SEC (11.4-15.4)
[2017-01-24] MEDS: FAMOTIDINE 20 MG TABLET PO SCH (21:41)
[2017-01-24] MEDS: ASPIRIN 81 MG TABLET, CHEWABLE PO SCH (21:42)
--- NOTE | 2017-01-25 08:08 | PDOC DISCHARGE SUMMARY ---
General - Admit/Disc Date/PCP Admission Date/Primary Care Provider: 01/21/17 05:15 Brian Oliver MD Discharge Date: 01/25/17 - Discharge Diagnosis (1) Pyelonephritis Is this a current diagnosis for this admission?: Yes (2) Severe sepsis Is this a current diagnosis for this admission?: Yes (3) Afib Is this a current diagnosis for this admission?: Yes - Additional Information Resuscitation Status: Do Not Resuscitate Discharge Diet: Regular Discharge Activity: Supervised Activity Home Medications: Lisinopril 20 mg PO DAILY 01/12/14 Amiodarone HCl [Cordarone 200 mg Tablet] 200 mg PO DAILY 01/20/17 Donepezil HCl 10 mg PO QHS 01/20/17 Memantine HCl [Namenda Xr] 28 mg PO DAILY 01/20/17 Potassium Chloride 20 meq PO QHS 01/20/17 Aspirin [Aspirin 81 mg Chewable Tablet] 81 mg PO DAILY 01/21/17 Guaifenesin [Mucinex Sr 600 mg Tablet.sa] 600 mg PO Q12 01/21/17 Amoxicillin 500 mg PO TID #18 capsule 01/25/17 Warfarin Sodium [Coumadin 3 mg Tablet] 3 mg PO DAILY #0 tablet 01/25/17 History of Present Illness Patient complains of: syncope*2 History of Present Illness: ALLEN ARANGO is a 81 year old female who passed out on commode 2d ago and again last pm. 1st time ER gave ceftri & keflex for uti. Hospital Course Hospital Course: Since she did not improve on keflex, she received cefepime & vanc until culture returned E coli 100k sensitive to all but quinolones. 1of2 blood cultures grew staph hominis which I called a contaminant. I switched her to ceftriaxone 1g daily 2 days ago. She developed edema, and I stopped IVF. INR fell to 1.5 from 3 in spinte of antibiotics. Warfarin was increased at discharge from 3mg MF and half rest of week to 3mg daily. 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 Physical Exam Vital Signs: Temp Pulse Resp BP Pulse Ox 99.1 F 103 H 17 136/69 H 97 01/24/17 16:20 01/25/17 07:00 01/24/17 16:20 01/24/17 16:20 01/24/17 16:20 Intake & Output 01/23/17 01/24/17 01/25/17 07:59 07:59 07:59 Intake Total 1914 1170 1045 Balance 1914 1170 1045 Weight 174 lb 9.698 oz 181 lb 14.102 oz 181 lb 7.047 oz General appearance: PRESENT: no acute distress Respiratory exam: PRESENT: clear to auscultation po Cardiovascular exam: PRESENT: systolic murmur. ABSENT: diastolic murmur, irregular rhythm Murmur grade: 1 GI/Abdominal exam: ABSENT: mass, organolmegaly, tenderness Extremities exam: PRESENT: pedal edema - trace Neurological exam: ABSENT: oriented to situation Psychiatric exam: PRESENT: appropriate affect Results Laboratory Results: 01/24/17 04:15 Labs- Last Values WBC 10.0 10^3/uL (4.0-10.5) 01/20/17 21:55 RBC 3.75 10^6/uL (3.72-5.28) 01/20/17 21:55 Hgb 12.5 g/dL (12.0-15.5) 01/20/17 21:55 Hct 38.3 % (36.0-47.0) 01/20/17 21:55 MCV 102 fl (80-97) H 01/20/17 21:55 MCH 33.4 pg (27.0-33.4) 01/20/17 21:55 MCHC 32.7 g/dL (32.0-36.0) 01/20/17 21:55 RDW 14.8 % (11.5-14.0) H 01/20/17 21:55 Plt Count 267 10^3/uL (150-450) 01/20/17 21:55 Total Counted 100 01/20/17 21:55 Seg Neutrophils % Not Reportable 01/20/17 21:55 Seg Neuts % (Manual) 67 % (42-78) 01/20/17 21:55 Band Neutrophils % 2 % (3-5) L 01/20/17 21:55 Lymphocytes % Not Reportable 01/20/17 21:55 Lymphocytes % (Manual) 20 % (13-45) 01/20/17 21:55 Atypical Lymphs % 2 % (0) 01/20/17 21:55 Monocytes % Not Reportable 01/20/17 21:55 Monocytes % (Manual) 6 % (3-13) 01/20/17 21:55 Eosinophils % Not Reportable 01/20/17 21:55 Eosinophils % (Manual) 1 % (0-6) 01/20/17 21:55 Basophils % Not Reportable 01/20/17 21:55 Basophils % (Manual) 1 % (0-2) 01/20/17 21:55 Metamyelocytes % 1 % (0) H 01/20/17 21:55 Absolute Neutrophils Not Reportable 01/20/17 21:55 Abs Neuts (Manual) 7.0 10^3/uL (1.7-8.2) 01/20/17 21:55 Absolute Lymphocytes Not Reportable 01/20/17 21:55 Abs Lymphs (Manual) 2.2 10^3/uL (0.5-4.7) 01/20/17 21:55 Absolute Monocytes Not Reportable 01/20/17 21:55 Abs Monocytes (Manual) 0.6 10^3/uL (0.1-1.4) 01/20/17 21:55 Absolute Eosinophils Not Reportable 01/20/17 21:55 Absolute Eos (Manual) 0.1 10^3/uL (0.0-0.6) 01/20/17 21:55 Absolute Basophils Not Reportable 01/20/17 21:55 Abs Basophils (Manual) 0.1 10^3/uL (0.0-0.2) 01/20/17 21:55 Toxic Granulation SLIGHT 01/20/17 21:55 Toxic Vacuolation PRESENT 01/20/17 21:55 Clumped Platelets PRESENT 01/20/17 21:55 Large Platelets PRESENT 01/20/17 21:55 Platelet Comment ADEQUATE 01/20/17 21:55 Poikilocytosis SLIGHT 01/20/17 21:55 Anisocytosis SLIGHT 01/20/17 21:55 Macrocytosis 1+ 01/20/17 21:55 Ovalocytes SLIGHT 01/20/17 21:55 PT 18.9 SEC (11.4-15.4) H 01/24/17 18:48 INR 1.48 01/24/17 18:48 VBG pH 7.22 (7.30-7.42) L 01/20/17 21:55 VBG pCO2 54.1 mmHg (35-63) 01/20/17 21:55 VBG HCO3 21.8 mmol/L (20-32) 01/20/17 21:55 VBG Base Excess -6.3 mmol/L 01/20/17 21:55 Sodium 139.0 mmol/L (137-145) 01/24/17 04:15 Potassium 3.5 mmol/L (3.6-5.0) L 01/24/17 04:15 Chloride 107 mmol/L (98-107) 01/24/17 04:15 Carbon Dioxide 25 mmol/L (22-30) 01/24/17 04:15 Anion Gap 7 (5-19) 01/24/17 04:15 BUN 21 mg/dL (7-20) H 01/24/17 04:15 Creatinine 0.61 mg/dL (0.52-1.25) 01/24/17 04:15 Est GFR ( Amer) > 60 (>60) 01/24/17 04:15 Est GFR (Non-Af Amer) > 60 (>60) 01/24/17 04:15 Glucose 93 mg/dL (75-110) 01/24/17 04:15 Lactic Acid 5.0 mmol/L (0.7-2.1) H 01/21/17 02:17 Calcium 8.1 mg/dL (8.4-10.2) L 01/24/17 04:15 Total Bilirubin 0.7 mg/dL (0.2-1.3) 01/20/17 21:55 Direct Bilirubin 0.4 mg/dL (0.0-0.4) 01/20/17 21:55 Indirect Bilirubin Not Reportable 01/20/17 21:55 Neonat Total Bilirubin Not Reportable 01/20/17 21:55 AST 247 U/L (14-36) H 01/20/17 21:55 ALT 117 U/L (9-52) H 01/20/17 21:55 Alkaline Phosphatase 146 U/L (38-126) H 01/20/17 21:55 Total Protein 6.5 g/dL (6.3-8.2) 01/20/17 21:55 Albumin 3.3 g/dL (3.5-5.0) L 01/20/17 21:55 Time Trough Drawn 2130 01/23/17 21:30 Vancomycin Trough 8.5 ug/mL (5.0-20.0) 01/23/17 21:30 Hep Bs Antigen Negative (Negative) 01/22/17 07:30 Hepatitis C ([facility]) <0.1 s/co ratio (0.0-0.9) 01/22/17 07:30 Hepatitis C Comment Comment (.) 01/22/17 07:30 Impressions: Chest X-Ray 01/20/17 21:47 IMPRESSION: Bibasilar atelectasis. No focal infiltrates identified. Qualifiers PATEINT BEING DISCHARGED WITH ANY OF THE FOLLOWING DIAGNOSIS?: No Plan Discharge Plan: home health. 2d ov Dr Villa for INR.
[2017-01-25 08:47] VITALS: BP 138/74
[2017-01-25] MEDS ORDERED: WARFARIN SODIUM 3 MG TABLET PO SCH ×2 (10:00)
[2017-01-25] MEDS: AMIODARONE HCL 200 MG TABLET PO SCH (10:29)
[2017-01-25] MEDS: FAMOTIDINE 20 MG TABLET PO SCH (10:29)
[2017-01-25] MEDS: POTASSIUM CHLORIDE 20 MEQ/15 ML UDCUP PO SCH (10:30)
== END 2017-01-25 11:46 | disposition home health service (06) | DRG 872 ==
LOC: ER 21:39 → UNDOADMIN 23:15 → EH 23:15 → 4N 01-21 00:53 → EH 01-21 05:15
PROVIDERS: ADMIT Family Medicine; ATTEND Family Medicine
DX: A41.9 Sepsis, unspecified organism (principal); N12 Tubulo-interstitial nephritis, not specified as acute or chronic; Z66 Do not resuscitate; I48.2 Chronic atrial fibrillation; B96.20 Unspecified Escherichia coli [E. coli] as the cause of diseases classified elsewhere; R65.20 Severe sepsis without septic shock; I10 Essential (primary) hypertension; J45.909 Unspecified asthma, uncomplicated; K75.9 Inflammatory liver disease, unspecified; R00.0 Tachycardia, unspecified; L89.629 Pressure ulcer of left heel, unspecified stage; L89.159 Pressure ulcer of sacral region, unspecified stage; Z79.01 Long term (current) use of anticoagulants; Z86.73 Personal history of transient ischemic attack (TIA), and cerebral infarction without residual deficits; F01.50 Vascular dementia, unspecified severity, without behavioral disturbance, psychotic disturbance, mood disturbance, and anxiety
CPT/HCPCS: 36415; 70450; 71010; 80048; 80053; 80202; 81001; 82565; 82803; 83605; 84484; 85025; 85610; 86803; 86804; 87040; 87077; 87086; 87088; 87186; 87340; 93005; 93010; 96360; 96365; 99285; 99291; J0692; J0696; J3370; J3490; J7030; J7060; S0028